=== PATIENT | male | born 1945 | race Caucasian/White ===

== ENCOUNTER 2021-07-07 17:43 | Emergency (ER) | payer OTHER, MEDICARE ==
[~2021-07-07] VITALS: Ht 182.9 cm; Wt 99.8 kg
[2021-07-07 21:01] LABS: BASOPHILS % (AUTO) 0.8 % (0.0-5.0); EOSINOPHILS % (AUTO) 1.5 % (0.0-8.0); HEMATOCRIT 37.3 % (42-54); LYMPHOCYTES % (AUTO) 31.8 % (21.0-51.0); MEAN CORPUSCULAR HEMOGLOBIN 32.5 pg (27.0-33.0); MEAN CORPUSCULAR HGB CONC 35.1 g/dL (32.0-36.0); MEAN CORPUSCULAR VOLUME 92.6 fL (79-99); MONOCYTES % (AUTO) 7.9 % (3.0-13.0); NEUTROPHILS % (AUTO) 57.8 % (40.0-77.0); PLATELET COUNT (AUTO) 131 K/uL (130-400); RED BLOOD CELL COUNT(AUTO) 4.03 MIL/uL (4.50-6.20); RED CELL DISTRIBUTION WIDTH 13.2 % (11.0-15.5); WHITE BLOOD COUNT (AUTO) 4.7 K/uL (4.8-10.8)
[2021-07-07 21:12] LABS: CREATININE 1.4 mg/dL (0.5-1.5); POTASSIUM 3.6 mmol/L (3.5-5.1)
[2021-07-07 21:24] LABS: BILIRUBIN,TOTAL 0.6 mg/dL (0.2-1.0); THYROID STIMULATING HORMONE 1.3 uIU/mL (0.36-3.74); TOTAL PROTEIN, SERUM 7.5 g/dL (6.0-8.3)
[2021-07-07 22:28] VITALS: BP 120/68
[2021-07-07] MEDS ORDERED: MAGNESIUM OXIDE 400 MG TABLET PO SCH (22:30)
[2021-07-07] MEDS ORDERED: MAGNESIUM OXIDE 400 MG TABLET PO ONE (22:31)
== END 2021-07-07 22:47 | disposition home or self-care (01) ==
LOC: EDH 17:43
DX: E83.42 Hypomagnesemia (principal); R55 Syncope and collapse; R00.9 Unspecified abnormalities of heart beat; E78.00 Pure hypercholesterolemia, unspecified; J44.9 Chronic obstructive pulmonary disease, unspecified; E11.40 Type 2 diabetes mellitus with diabetic neuropathy, unspecified; K21.9 Gastro-esophageal reflux disease without esophagitis; I10 Essential (primary) hypertension; I25.2 Old myocardial infarction
CPT/HCPCS: 36415; 71045; 80053; 82550; 83735; 83874; 83880; 84443; 84484; 85025; 85378; 93005

== ENCOUNTER 2021-09-24 06:23 | Day surgery (SDC) | payer OTHER ==
[2021-09-22 09:24] LABS: APPEARANCE,URINE Clear (CLEAR); BILIRUBIN,URINE Negative (NEGATIVE); COLOR,URINE Yellow (YELLOW); GLUCOSE, URINE (UA) Negative (NEGATIVE); KETONES,URINE Trace mg/dL (NEGATIVE); LEUKOCYTE ESTERASE ,URINE Negative (NEGATIVE); NITRATE,URINE Negative (NEGATIVE); OCCULT BLOOD,URINE Negative (NEGATIVE); PROTEIN,URINE Trace mg/dL (NEGATIVE)
[2021-09-22 09:40] LABS: BACTERIA,URINE Rare /HPF (None Seen); RBC,URINE 0-1 /HPF (0-1); SQUAMOUS EPITHELIAL CELL,UR Rare /HPF (0-2); WBC,URINE 0-1 /HPF (0-1)
[2021-09-22 09:46] LABS: BASOPHILS % (AUTO) 0.6 % (0.0-5.0); EOSINOPHILS % (AUTO) 1.7 % (0.0-8.0); HEMATOCRIT 41.4 % (42-54); LYMPHOCYTES % (AUTO) 27.4 % (21.0-51.0); MEAN CORPUSCULAR HEMOGLOBIN 31.4 pg (27.0-33.0); MEAN CORPUSCULAR HGB CONC 33.1 g/dL (32.0-36.0); MEAN CORPUSCULAR VOLUME 94.7 fL (79-99); MONOCYTES % (AUTO) 6.8 % (3.0-13.0); NEUTROPHILS % (AUTO) 63.1 % (40.0-77.0); PLATELET COUNT (AUTO) 130 K/uL (130-400); RED BLOOD CELL COUNT(AUTO) 4.37 MIL/uL (4.50-6.20); RED CELL DISTRIBUTION WIDTH 13.1 % (11.0-15.5); WHITE BLOOD COUNT (AUTO) 5.2 K/uL (4.8-10.8)
[2021-09-22 09:55] LABS: CREATININE 1.2 mg/dL (0.5-1.5); POTASSIUM 4.7 mmol/L (3.5-5.1)
[2021-09-22 09:59] LABS: INR 1.06 (0.85-1.15); PROTHROMBIN TIME 11.5 SEC (9.6-11.6)
[2021-09-22 10:00] LABS: PARTIAL THROMBOPLASTIN TIME 28.2 SEC (26.3-35.5)
[2021-09-23 13:03] VITALS: BP 168/89
[2021-09-24] VITALS (12 sets, daily range): BP systolic 131–172; BP diastolic 71–95
[~2021-09-24] VITALS: Ht 182.9 cm; Wt 101.2 kg
[~2021-09-24 06:23] MED LIST: 0.9% NACL 500ML IV.SOLN 500 ML IV SCH; ALBU90AE2 IH; AMLO-257 PO; DULO60CA64 PO; GABA600T10 PO; GLIP10TA9 PO; GLIP5TAB11 PO; LISI40TA9 PO; METF-446 PO; OLOD4MIS2 IH; PANT40TA54 PO; PRAV40TA3 PO
[2021-09-24] MEDS ORDERED: NITROGLYCERIN 50MG VIAL ONE (07:14)
[2021-09-24] MEDS ORDERED: IOHEXOL-350 50ML VIAL IV ONE (07:14)
[2021-09-24] MEDS ORDERED: IOHEXOL 350 MG/ML 100ML INFUS..BTL IV ONE (07:14)
[2021-09-24] MEDS ORDERED: HEPARIN 10,000 UNIT/10ML (1,000 UNIT/ML) VIAL ONE (07:14)
[2021-09-24] MEDS ORDERED: FENTANYL CITRATE PF 50 MCG/1 ML 2ML VIAL ONE ×2 (07:15→14:10)
[2021-09-24] MEDS ORDERED: MIDAZOLAM HCL 1 MG/ML 2ML VIAL ONE ×2 (07:15→14:10)
[2021-09-24] MEDS ORDERED: LIDOCAINE HCL 400MG/20ML VIAL ONE ×2 (07:15→14:10)
[2021-09-24] MEDS ORDERED: 0.9%NACL 1000ML 1,000 ML IV ONE (07:20)
[2021-09-24] MEDS ORDERED: LABETALOL 20MG VIAL IV ONE (08:18)
[2021-09-24] MEDS ORDERED: 0.9%NACL 1000ML 1,000 ML IV SCH (09:00)
[2021-09-24] MEDS ORDERED: DEXTROSE 50%-WATER 50 ML DISP.SYRIN IV PRN (09:00)
[2021-09-24] MEDS ORDERED: GLUCAGON 1MG KIT 1 MG ML IM PRN (09:00)
[2021-09-24] MEDS ORDERED: INSULIN HUMULIN R 100 UNIT/ML 3ML SQ SCH (11:30)
[2021-09-24] MEDS ORDERED: CEFAZOLIN SODIUM 1 GM VIAL ONE (14:08)
[2021-09-24] MEDS ORDERED: BUPIVACAINE/PF 0.25% 30ML VIAL IJ ONE (14:14)
== END 2021-09-24 16:10 | disposition home or self-care (01) ==
LOC: DAH 06:23
PROVIDERS: ATTEND Internal Medicine Cardiovascular Disease
DX: I47.2 Ventricular tachycardia (principal); I42.8 Other cardiomyopathies; I25.119 Atherosclerotic heart disease of native coronary artery with unspecified angina pectoris; R55 Syncope and collapse; R42 Dizziness and giddiness; R61 Generalized hyperhidrosis; R23.1 Pallor; I10 Essential (primary) hypertension; E78.5 Hyperlipidemia, unspecified; G47.33 Obstructive sleep apnea (adult) (pediatric); E11.9 Type 2 diabetes mellitus without complications; Z79.01 Long term (current) use of anticoagulants; Z79.899 Other long term (current) drug therapy; Z98.890 Other specified postprocedural states; Z82.49 Family history of ischemic heart disease and other diseases of the circulatory system
CPT/HCPCS: 33285; 36415 ×2; 71045; 80048; 81001; 82948 ×2; 83880; 85025; 85610; 85730; 93005; 93458; A4215; A4216; A4221; A4222; A4223 ×3; A4606; A4649; A4663; C1760; C1764; C1894 ×2; J0690; J1644 ×2; J2250; J3490 ×5; J7030; Q9965 ×2; Q9967 ×2; 96360; 96361; 99156; 99157; J3010